=== PATIENT | female | born 2000 | race American Indian/Alaskan Native ===

== ENCOUNTER 2018-11-02 23:42 | Emergency (ER) | payer OTHER ==
[2018-11-02 23:48] VITALS: BMI 21.9
[2018-11-02] MEDS ORDERED: Sodium Chloride 0.9% 1,000 ML IV STA (23:52)
[2018-11-03 00:17] LABS: BASO # 0.05 K/mm3 (0.0-2.0); BASO % 0.6 % (0.0-3.0); EOS # 0.1 (0.0-0.7); EOS % 0.6 % (1.5-5.0); HEMOGLOBIN 13.7 g/dL (12.0-16.0); LYMPH # 4.2 (1.2-3.4); LYMPH % 51.2 % (22.0-35.0); MEAN CELL VOLUME 83.8 fl (80.0-105.0); MEAN CORPUSCULAR HGB CONC 35.8 g/dl (31.0-37.0); MEAN PLATELET VOLUME 8.7 fl (7.0-11.0); MONO # 0.5 (0.1-0.6); MONO % 5.7 % (1.0-6.0); RBC 4.57 10^6/uL (3.5-6.1); RED CELL DISTRIBUTION WIDTH 12.1 % (11.5-14.5); WHITE BLOOD COUNT 8.1 10^3/uL (4.5-11.0)
[2018-11-03 00:22] LABS: ALB/GLOB RATIO 1.2 (1.1-1.8); ALBUMIN 4.1 g/dL (3.0-4.8); ALT/SGPT 16 U/L (7-56); AST/SGOT 32 U/L (14-36); BLOOD UREA NITROGEN 12 mg/dL (7-21); CALCIUM 8.9 mg/dL (8.4-10.5); GFR NON-AFRICAN AMERICAN > 60
[2018-11-03] MEDS ORDERED: Potassium Chloride 20 mEq ER Tab PO STA (00:24)
--- NOTE | 2018-11-03 00:25 | ED PDOC ---
Arrival/HPI - General Chief Complaint: Abdominal Pain Time Seen by Provider: 11/02/18 23:42 Historian: Patient - History of Present Illness Narrative History of Present Illness (Text): 11/03/18 00:47 18 y/o female with no significant PMH presents to the ED c/o nausea and vomiting x 1 hour. Associated lower abdominal cramping. Pt ate cheese pizza at 1900 and went to sleep. At 2300, patient woke up and had 3 episodes of nonbloody, nonbilious emesis in quick succession. She then became lightheaded and called the ambulance. Currently menstruating. Denies drug or alcohol use, fever, chills, cough, congestion, back pain, chest pain, SOB, neck pain/stiffness, headache, vision changes, diarrhea, or any other associated symptoms. Past Medical History - Provider Review Nursing Documentation Reviewed: Yes - Psychiatric Hx Substance Use: No - Anesthesia Hx Anesthesia: No Hx Anesthesia Reactions: No Hx Malignant Hyperthermia: No Family/Social History - Physician Review Nursing Documentation Reviewed: Yes Family/Social History: No Known Family HX Smoking Status: Never Smoked Hx Alcohol Use: No Hx Substance Use: No Allergies/Home Meds Allergies/Adverse Reactions: Allergies No Known Allergies Allergy (Verified 11/02/18 23:45) Home Medications: Home Meds Medication Instructions Recorded Confirmed No Known Home Med 11/02/18 11/02/18 Review of Systems - Review of Systems Constitutional: Normal. absent: Fevers Eyes: Normal. absent: Vision Changes ENT: Normal. absent: Sore Throat, Sinus Congestion Respiratory: Normal. absent: SOB, Cough Cardiovascular: Normal. absent: Chest Pain, Palpitations, Syncope Gastrointestinal: Abdominal Pain, Nausea, Vomiting. absent: Stool Changes, Con stipation, Diarrhea, Appetite Changes, Hematochezia, Hematemesis Genitourinary Female: Normal. absent: Dysuria, Frequency, Vaginal Bleeding, Vaginal Discharge Musculoskeletal: Normal. absent: Back Pain, Neck Pain Skin: Normal. absent: Rash Neurological: Dizziness. absent: Headache Physical Exam Vital Signs Reviewed: Yes Temperature: Afebrile Blood Pressure: Normal Pulse: Tachycardic Respiratory Rate: Normal Appearance: Positive for: Well-Appearing, Non-Toxic, Comfortable Pain Distress: None Mental Status: Positive for: Alert and Oriented X 3 - Systems Exam Head: Present: Atraumatic, Normocephalic Pupils: Present: PERRL Extroacular Muscles: Present: EOMI Conjunctiva: Present: Normal Mouth: Present: Moist Mucous Membranes Neck: Present: Normal Range of Motion. No: Meningeal Signs Respiratory/Chest: Present: Clear to Auscultation, Good Air Exchange. No: Respiratory Distress, Accessory Muscle Use Cardiovascular: Present: Regular Rate and Rhythm, Normal S1, S2, Peripheal Pulses Present Abdomen: Present: Normal Bowel Sounds. No: Tenderness, Distention, Peritoneal Signs, Rebound, Guarding Back: Present: Normal Inspection. No: CVA Tenderness Upper Extremity: Present: Normal Inspection, Normal ROM, NORMAL PULSES, Neurovascularly Intact, Capillary Refill < 2s. No: Cyanosis, Edema, Temperature Abnormalties Lower Extremity: Present: Normal Inspection, Normal ROM. No: Edema Neurological: Present: GCS=15, Speech Normal, Motor Func Grossly Intact, Normal Sensory Function, Gait Normal Skin: Present: Warm, Dry, Normal Color. No: Rashes Psychiatric: Present: Alert, Oriented x 3, Normal Insight, Normal Concentration, Normal Affect, Normal Mood Medical Decision Making ED Course and Treatment: 11/03/18 02:29 Initial Plan: * Labs * UA * UDS * IVF * Pepcid * Zofran On initial exam, patient appears well but uncomfortable. No active vomiting. Abdomen is soft and nontender, nondistended. Bloodwork reviewed, CBC unremarkable, CMP shows hypokalemia, repleted with PO KCl Patient reports complete resolution of symptoms with medications and fluids. Denies abdominal pain, lightheadedness, nausea. Requesting discharge home. Vitals have improved since triage. Pt refusing UA and UDS. Pt most likely with viral enteritis. Advised PMD followup. Diagnostic testing results and plan of care discussed with patient. Strict instructions given regarding prescription use, importance of followup, and signs/symptoms to return to ER including fever, abdominal pain, chest pain, SOB, or any other new/worsening symptoms. Pt verbalized understanding of discussion. Patient is A&Ox3, ambulating with steady gait, with vital signs stable for discharge. - Lab Interpretations Lab Results: Total Bilirubin 0.3 mg/dL (0.2-1.3) 11/03/18 00:00 AST 32 U/L (14-36) 11/03/18 00:00 ALT 16 U/L (7-56) 11/03/18 00:00 Alkaline Phosphatase 83 U/L (38-126) 11/03/18 00:00 Total Protein 7.5 g/dL (5.8-8.3) 11/03/18 00:00 Albumin 4.1 g/dL (3.0-4.8) 11/03/18 00:00 Globulin 3.4 gm/dL 11/03/18 00:00 Albumin/Globulin Ratio 1.2 (1.1-1.8) 11/03/18 00:00 11/03/18 00:00 11/03/18 00:00 Lab Results 11/03/18 00:00: Alcohol, Quantitative < 10 11/03/18 00:00: Beta HCG, Quant < 2.39 11/03/18 00:00: D-Dimer, Quantitative < 200 11/03/18 00:00: Sodium 140, Potassium 3.1 L, Chloride 104, Carbon Dioxide 26, Anion Gap 14, BUN 12, Creatinine 0.8, Est GFR ( Amer) > 60, Est GFR (Non- Af Amer) > 60, Random Glucose 171 H, Calcium 8.9, Magnesium 1.7, Total Bilirubin 0.3, AST 32, ALT 16, Alkaline Phosphatase 83, Troponin I < 0.01, Total Protein 7.5, Albumin 4.1, Globulin 3.4, Albumin/Globulin Ratio 1.2, Lipase 74 11/03/18 00:00: PT 11.7, INR 1.05, APTT 36.0 11/03/18 00:00: WBC 8.1, RBC 4.57, Hgb 13.7, Hct 38.3, MCV 83.8, MCH 30.0, MCHC 35.8, RDW 12.1, Plt Count 301, MPV 8.7, Neut % (Auto) 41.9 L, Lymph % (Auto) 51.2 H, [place] % (Auto) 5.7, Eos % (Auto) 0.6 L, Baso % (Auto) 0.6, Lymph # (Auto) 4.2 H, [place] # (Auto) 0.5, Eos # (Auto) 0.1, Baso # (Auto) 0.05, Absolute Neuts (auto) 3.41 I have reviewed the lab results: Yes - EKG Interpretation EKG Interpretation (Text): Sinus tachycardia at 127; No STEMI or other acute ischemic changes Interpreted by ED Physician: Yes Type: 12 lead EKG - Medication Orders Current Medication Orders: Sodium Chloride (Sodium Chloride 0.9%) 1,000 mls @ 1,000 mls/hr IV .Q1H STA Stop: 11/03/18 00:51 Potassium Chloride (K-Dur 20 Meq Er Tab) 40 meq PO STAT STA Stop: 11/03/18 00:25 Discontinued Medications Famotidine (Pepcid) 20 mg IVP STAT STA Stop: 11/02/18 23:53 Ondansetron HCl (Zofran Inj) 4 mg IVP STAT STA Stop: 11/02/18 23:53 Disposition/Present on Arrival - Present on Arrival Any Indicators Present on Arrival: No History of DVT/PE: No History of Uncontrolled Diabetes: No Urinary Catheter: No History of Decub. Ulcer: No History Surgical Site Infection Following: None - Disposition Have Diagnosis and Disposition been Completed?: Yes Diagnosis: Nausea & vomiting Disposition: HOME/ ROUTINE Disposition Time: 20:00 Condition: IMPROVED Discharge Instructions (ExitCare): Acute Abdomen (Belly Pain), Nausea and Vomiting, Adult Additional Instructions: Increase fluids Rest, no strenuous activity [place] diet Followup with primary doctor within 2 days Followup with GI doctor within 2 days Return to ER with any new/worsening symptoms Referrals: Jacoby Dennis MD [Staff Provider] - Follow up with primary Judit Solomon MD [Primary Care Provider] - Follow up with primary Forms: [facility] [facility] ([place]ali), WORK NOTE
[2018-11-03 00:32] LABS: TROPONIN I < 0.01 ng/mL
[2018-11-03 00:33] VITALS: RESP 18; TEMP 98
[2018-11-03 00:35] LABS: LIPASE 74 U/L (23-300)
[2018-11-03 00:39] LABS: INR 1.05; PROTHROMBIN TIME 11.7 SECONDS (9.4-12.5)
[2018-11-03] MEDS ORDERED: Sodium Chloride 0.9% 1,000 ML IV STA (00:52)
[2018-11-03 01:36] VITALS: BP 114/85
[2018-11-03 02:32] VITALS: PULSE 97; O2SAT 98
--- NOTE | 2018-11-03 09:22 | CARD ---
APPROVED REPORT Date of service: 11/03/2018 EKG Measurement Heart [id number] <Conclusion> Sinus tachycardia Nonspecific T wave abnormality Abnormal ECG
== END 2018-11-03 02:33 | disposition home or self-care (01) ==
LOC: ED 23:42
DX: R11.2 Nausea with vomiting, unspecified (principal)
CPT/HCPCS: 80053; 80320; 81025; 83690; 83735; 84484; 84702; 85025; 85378; 85610; 85730; 93005; 96361; 96374; 99284; J2405; J7030